=== PATIENT | male | born 1995 | race Two or more races ===

== ENCOUNTER 2020-02-15 21:28 | Emergency (ER) | payer BC, OTHER ==
[~2020-02-15] VITALS: Ht 170.2 cm; Wt 72.6 kg
[2020-02-15 22:06] VITALS: BP 116/74
== END 2020-02-15 22:49 | disposition left against medical advice (07) ==
LOC: ER 21:34
DX: M25.511 Pain in right shoulder (principal); M54.2 Cervicalgia; R51.9 Headache, unspecified; Z53.21 Procedure and treatment not carried out due to patient leaving prior to being seen by health care provider